=== PATIENT | female | born 1985 | race Caucasian/White ===

== ENCOUNTER 2023-11-29 05:40 | Inpatient (IN) ==
[2023-11-29] MEDS: Lactated Ringers 1000 ml BAG 1,000 ML IV ONE (06:44)
[2023-11-29 07:09] LABS: ABS Eosinophils 0.2 10^3/uL (0.0-0.5); ABS Lymphocytes 1.3 10^3/uL (1.0-4.8); ABS Monocytes 0.6 10^3/uL (0.0-0.9); ABS Neutrophils 8.1 10^3/uL (1.5-7.6); Eosinophil % 2.3 %; Hematocrit 36.6 % (35-45); Hemoglobin 12.9 g/dL (11.5-14.3); Lymphocyte % 12.5 %; Mean Corpuscular Hemoglobin 31.4 pg (27-33); Mean Corpuscular Hgb Conc 35.3 g/dL (31-36); Mean Corpuscular Volume 88.8 fL (80-97); Mean Platelet Volume 9.3 fL (7.5-11.2); Platelet Count 264 10^3/uL (150-450); Red Blood Count 4.12 10^6/uL (3.63-4.92); Red Cell Distribution Width 12.9 % (12-17); White Blood Count 10.3 10^3/uL (3.8-11.8)
[2023-11-29] MEDS ORDERED: Morphine PF AMP (0.5MG/ML) 5 MG/10 ML AMP ONE (07:16)
[2023-11-29] MEDS ORDERED: fentaNYL 100 mcg/2 ml 50 MCG/ML VIAL ONE (07:16)
[2023-11-29] MEDS ORDERED: Ondansetron 4 mg VIAL 2 MG/ML 2 ml VIAL ONE (07:21)
[2023-11-29] MEDS ORDERED: Dexamethasone IV 4 MG/ML VIAL 1 ml VIAL ONE (07:21)
[2023-11-29] MEDS ORDERED: Phenylephrine IV 10 MG/ML 1 ml VIAL ONE (07:22)
[2023-11-29] MEDS ORDERED: Lactated Ringers 1000 ml BAG 1,000 ML IV ONE (07:42)
[2023-11-29] MEDS ORDERED: Lactated Ringers 1000 ml BAG 1,000 ML IV SCH (08:00)
[2023-11-29] MEDS: ceFOXitin 2 GM IVPREMIX 2 GM/50 ML BAG IVPB ONE (08:02)
[2023-11-29] MEDS: Sodium Citrate/Citric Acid LIQ 15 ML UDC PO ONE (08:02)
[2023-11-29] MEDS ORDERED: Oxytocin 10 UNITS/ML 1 ML VIAL ONE (08:38)
[2023-11-29] MEDS ORDERED: Acetaminophen IV 1 GM/100ML 1,000 MG/100 ML BAG IV ONE (08:48)
[2023-11-29] MEDS ORDERED: Metoclopramide 5 MG/ML VIAL (10 mg) IV PRN (09:16)
[2023-11-29] MEDS ORDERED: Acetaminophen IV 1 GM/100ML 1,000 MG/100 ML BAG IV PRN (09:16)
[2023-11-29] MEDS ORDERED: Naloxone 0.4 mg VIAL 0.4 mg/ml 1 ml VIAL IV PUSH PRN (09:16)
[2023-11-29] MEDS ORDERED: Ondansetron 4 mg VIAL 2 MG/ML 2 ml VIAL IV PRN (09:16)
[2023-11-29] MEDS ORDERED: Glycerin ADULT 2.4 gm SUPP PR PRN (09:19)
[2023-11-29] MEDS ORDERED: Dibucaine 1% OINT 28.35 GM TUBE PR PRN (09:19)
[2023-11-29] MEDS ORDERED: Oxytocin in LR 20,000 MILLI.UNIT/1,000 ML BAG IV SCH (09:20)
[2023-11-29 10:19] LABS: Urine Benzodiazepine Screen None Detected (None Detect); Urine Cannabinoids Screen None Detected (None Detect); Urine Opiates Screen None Detected (None Detect)
[2023-11-29 10:24] LABS: Urine Appearance Clear; Urine Bilirubin Negative (Negative); Urine Blood Negative (Negative); Urine Color Light-Yellow; Urine Glucose Negative (Negative); Urine Ketones Negative (Negative); Urine Nitrite Negative (Negative); Urine Protein Negative (Negative); Urine Specific Gravity 1.011 (1.002-1.030); Urine Urobilinogen Negative (Negative); Urine pH 6.5 (5.0-8.0)
[2023-11-30 06:54] LABS: ABS Eosinophils 0.2 10^3/uL (0.0-0.5); ABS Lymphocytes 1.4 10^3/uL (1.0-4.8); ABS Monocytes 0.6 10^3/uL (0.0-0.9); ABS Neutrophils 11.5 10^3/uL (1.5-7.6); Eosinophil % 1.3 %; Hematocrit 30.9 % (35-45); Hemoglobin 11.1 g/dL (11.5-14.3); Lymphocyte % 10.1 %; Mean Corpuscular Volume 88.7 fL (80-97); Mean Platelet Volume 9.3 fL (7.5-11.2); Platelet Count 235 10^3/uL (150-450); Red Blood Count 3.48 10^6/uL (3.63-4.92); Red Cell Distribution Width 12.8 % (12-17); White Blood Count 13.6 10^3/uL (3.8-11.8)
[2023-12-01 09:08] VITALS: BP 83/52
== END 2023-12-01 17:37 | disposition home or self-care (01) | DRG 540 ==
LOC: MCHOB 05:40
PROVIDERS: ADMIT Obstetrics & Gynecology; ATTEND Obstetrics & Gynecology